=== PATIENT | male | born 1965 | race African-American/Black ===

== ENCOUNTER 2020-07-29 12:59 | Emergency (ER) | payer OTHER, SELFPAY ==
--- NOTE | ~2020-07-29 | XR_ITS ---
EXAMINATION: XR chest 2V 07/29/2020 13:34 INDICATION: Cough and shortness of breath. Fever. PROCEDURE: 2 view chest COMPARISON: No prior studies for comparison. FINDINGS: The lungs are clear. The cardiomediastinal silhouette is within normal limits. There are no pleural effusions. There is no pneumothorax suspected. IMPRESSION: 1: NO ACUTE CARDIOPULMONARY DISEASE. Reviewed, dictated and finalized at location A. S HOST
[2020-07-29 13:18] VITALS: BP 140/93; PULSE 87; RESP 24; TEMP 37.6; O2SAT 100
--- NOTE | 2020-07-29 13:27 | ED.URI ---
HPI - URI/Sore Throat General Chief Complaint: Upper Respiratory Infection Stated Complaint: pneumonia Time Seen by Provider: 07/29/20 13:19 Source: patient and RN notes reviewed Mode of arrival: ambulatory Limitations: no limitations History of Present Illness HPI Narrative: Patient presents today complaining of an approximately 1 month history of a dry cough. Patient was diagnosed with pneumonia in April, finished a course of antibiotics, and states his symptoms had almost completely resolved until returning in June. States he is now very fatigued as well. Reports he does have some productivity in his cough, but only in the mornings. Denies shortness of breath, congestion, rhinorrhea, sore throat, fever. He has taken [place] cold with relief. Denies history of COPD or asthma. He is a non-smoker. He is S/P kidney transplant in 2012. No recent testing for COVID-19. MD elicited complaint: cough Related Data Home Medications Medication Instructions Recorded Confirmed calcitriol 0.25 mcg DAILY 07/29/20 07/29/20 losartan 25 mg DAILY 07/29/20 07/29/20 mycophenolate sodium 360 mg PO DAILY 07/29/20 07/29/20 prednisone 5 mg DAILY 07/29/20 07/29/20 tacrolimus 07/29/20 Allergies Allergy/AdvReac Type Severity Reaction Status Date / Time No Known Allergies Allergy Verified 07/29/20 13:18 Review of Systems Review of Systems: Narrative: CONSTITUTIONAL: Denies body aches, fever, chills, or sweats. + Fatigue EYES: Denies visual changes, redness, or discharge. ENT: Denies rhinorrhea, congestion, sore throat, or otalgia. CARDIOVASCULAR: Denies chest pain, palpitations, or edema. RESPIRATORY: Denies dyspnea. + Cough GASTROINTESTINAL: Denies abdominal pain, nausea, vomiting, or diarrhea. GENITOURINARY: Denies dysuria or hematuria. SKIN: Denies rash, itching, or wounds. MUSCULOSKELETAL: Denies back pain, joint pain, or myalgia. NEUROLOGIC: Denies headache, numbness, tingling, or weakness. PSYCH: Denies depression or anxiety. [facility] Surgical History Surgical History (Updated 07/29/20 @ 13:34 by Jesica Aragon, [employer]LEY COLLECTOR, BC) Kidney transplant recipient Social History Social History Gender identity (if verbalized by the patient): Male Exam Narrative: Exam Narrative: GENERAL: Well-appearing, well-nourished, and in no acute distress. HEAD: Normocephalic, atraumatic. EYES: EOMI. No redness or drainage. Conjunctivae normal. ENT: Mucous membranes pink and moist. Nares clear. No rhinorrhea. TMs normal bilaterally. Throat normal. Uvula midline. NECK: Normal AROM. Supple. No lymphadenopathy. CHEST: No respiratory distress. Few crackles in the left lower lobe, otherwise clear. HEART: Regular rate and rhythm. No murmur appreciated. Normal peripheral pulses. EXTREMITIES: Normal range of motion. No edema. SKIN: Warm, dry, no rash. Capillary refill normal. Normal skin turgor. NEURO: No focal deficits. Alert and oriented x3. Gait steady. PSYCH: Normal affect. No signs of depression or anxiety. Course Vital Signs Vital signs: Vital Signs Temperature 99.6 F 07/29/20 13:18 Pulse Rate 87 07/29/20 13:18 Respiratory Rate 24 H 07/29/20 13:18 Blood Pressure 140/93 H 07/29/20 13:18 Pulse Oximetry 100 07/29/20 13:18 Temperature 99.6 F 07/29/20 13:18 Pulse Rate 87 07/29/20 13:18 Respiratory Rate 24 H 07/29/20 13:18 Blood Pressure 140/93 H 07/29/20 13:18 Pulse Oximetry 100 07/29/20 13:18 Reviewed. Pt has been instructed to follow up with his PCP regarding his elevated blood pressure today. MDM - URI/Sore Throat Differential Diagnosis Differential diagnosis: Likely upper respiratory infection, viral infection, bronchitis and other (Pneumonia) Imaging Data Radiologist's impression: ITS Impressions Chest X-Ray 07/29/20 13:35 IMPRESSION: 1: NO ACUTE CARDIOPULMONARY DISEASE. Critical Care Time Critical Care Time Critical Care Time: No Discharge Plan
== END 2020-07-29 14:04 | disposition home or self-care (01) ==
PROVIDERS: Emergency Provider Nurse Practitioner
DX: J40 Bronchitis, not specified as acute or chronic (principal); Z94.0 Kidney transplant status
CPT/HCPCS: 71046; 99203; G0463

== ENCOUNTER 2022-04-29 14:31 | Emergency (ER) | payer OTHER, SELFPAY ==
--- NOTE | ~2022-04-29 | XR_ITS ---
EXAMINATION: XR chest 2V DATE: 04/29/2022 15:01 INDICATION: Cough and wheezing. TECHNIQUE: Frontal and lateral views of the chest were obtained. COMPARISON: Chest 2 views 07/29/2020 FINDINGS: There are patchy airspace opacities in all right lung zones and in left mid and lower lung zones. No pleural effusion or pneumothorax. The heart size is normal. There are surgical clips in the neck. IMPRESSION: 1. Diffuse lung disease, right worse than left, consistent with pneumonia versus pulmonary edema. Reviewed, dictated and finalized at location A. IMPRESSION: 1. Diffuse lung disease, right worse than left, consistent with pneumonia versu s pulmonary edema.
[2022-04-29 14:41] VITALS: BP 162/80; PULSE 72; RESP 16; TEMP 36.8; O2SAT 94
--- NOTE | 2022-04-29 14:59 | ED.URI ---
HPI - URI/Sore Throat General Chief Complaint: Upper Respiratory Infection Stated Complaint: flu like symptoms Time Seen by Provider: 04/29/22 14:50 History of Present Illness HPI Narrative: Jasen Monge is a 56 yo male with a PMH of renal transplant, A. fib, chronic anticoagulation, [facility] upper respiratory symptoms that have been a few days in the making that include diffuse wheezing of the chest runny nose and cough. He has a history of having pneumonia every year to has some lung scarring. He also has a grade 4 heart murmur. States that his primary care physician is not available to try to call his office Related Data Home Medications Medication Instructions Recorded Confirmed calcitriol 0.25 mcg capsule 0.25 mcg DAILY 07/29/20 04/29/22 losartan 25 mg tablet 25 mg DAILY 07/29/20 04/29/22 mycophenolate sodium 360 mg 360 mg PO DAILY 07/29/20 04/29/22 tablet,delayed release tacrolimus 1 mg capsule, 1 mg DIRECTED 07/29/20 04/29/22 immediate-release Allergies Allergy/AdvReac Type Severity Reaction Status Date / Time No Known Allergies Allergy Verified 04/29/22 14:47 Review of Systems Review of Systems: CONSTITUTIONAL: Denies fever, chills, sweats. EYES: Denies visual changes, redness, discharge. ENT: Denies rhinorrhea, congestion, sore throat, otalgia. CARDIOVASCULAR: Denies chest pain, palpitations, edema. RESPIRATORY: Denies dyspnea, wheezing, has cough, denies sob GASTROINTESTINAL: Denies abdominal pain, nausea, vomiting, diarrhea. GENITOURINARY: Denies dysuria, hematuria, abnormal discharge SKIN: Denies rash or itching. NEUROLOGIC: Denies numbness, or focal weakness. PSYCHIATRIC: Denies anxiety or depression. [facility] Past Medical History Medical History A-fib Chronic anticoagulation Surgical History Surgical History Kidney transplant recipient Renal transplant recipient Social History Social History (Updated 04/29/22 @ 15:05 by Amanda Leal CNP) Smoking status: Never smoker Alcohol intake: never Gender identity (if verbalized by the patient): Male Comments At time of signature, I agree with nursing past medical, surgical, social and family history. There is no relevant family history pertinent to the presenting complaint. Exam Narrative: GENERAL: This is a well-nourished, well-developed patient, in mild distress. HEAD: normocephalic, atraumatic. EYES: Sclera clear/white. Vision is grossly intact. EARS: External ears normal, auditory canals clear and without drainage, TMs normal without perforation. Hearing grossly intact. NOSE: External nose normal without nasal discharge, nares without redness, no rhinorrhea. THROAT: Mucous membranes moist, posterior pharynx mild erythema NECK: Neck supple, non-tender CARDIOVASCULAR: Regular rate and rhythm without 4/6 systolic murmur, gallops, or rubs. RESPIRATORY: Diminished to auscultation. Breath sounds equal bilaterally. Diffuse wheezes, rales, or rhonchi. GASTROINTESTINAL: Not done SKIN: warm, intact with no suspicious lesions or rash, good texture and turgor. NEURO: awake, alert, and oriented to person, place and time. There were no obvious focal neurologic abnormalities. Steady gait EXTREMITIES: Normal range of motion. 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
== END 2022-04-29 15:26 | disposition home or self-care (01) ==
PROVIDERS: Emergency Provider Nurse Practitioner; PCP Nurse Practitioner Family
DX: J18.9 Pneumonia, unspecified organism (principal); I48.91 Unspecified atrial fibrillation; Z79.01 Long term (current) use of anticoagulants; Z94.0 Kidney transplant status
CPT/HCPCS: 71046; 99213; G0463

== ENCOUNTER 2022-11-18 09:55 | Emergency (ER) | payer OTHER, SELFPAY ==
--- NOTE | ~2022-11-18 | XR_ITS ---
EXAMINATION: XR chest 2V DATE: 11/18/2022 10:36 INDICATION: Productive cough. Kidney transplant recipient. TECHNIQUE: Frontal and lateral views of the chest were obtained. COMPARISON: Chest 2 views 04/29/2022, 07/29/20 FINDINGS: There are airspace opacities in all right lung zones. There are airspace opacities in left perihilar region and left lower lung zone. No pleural effusion or pneumothorax. Cardiomegaly is noted . There are surgical clips in the neck. IMPRESSION: 1. Diffuse lung disease, right worse than left, similar to 04/29/2022, but new from 07/29/20. The diff erential diagnosis includes pneumonia, pulmonary edema, drug reaction, and chronic lung disease. If t here is clinical concern for chronic lung disease, consider noncontrast chest CT. 2. Cardiomegaly. Reviewed, dictated and finalized at location A. IMPRESSION: 1. Diffuse lung disease, right worse than left, similar to 04/29/2022, but new f rom 07/29/20. The differential diagnosis includes pneumonia, pulmonary edema, d rug reaction, and chronic lung disease. If there is clinical concern for chroni c lung disease, consider noncontrast chest CT. 2. Cardiomegaly.
--- NOTE | 2022-11-18 10:05 | ED.URI ---
HPI - URI/Sore Throat General Chief Complaint: Upper Respiratory Infection Stated Complaint: Congestion,Shortness of Breath,Cough Time Seen by Provider: 11/18/22 10:53 Source: patient and RN notes reviewed Mode of arrival: ambulatory Limitations: no limitations History of Present Illness HPI Narrative: 57-year-old male presents concern for congestion, cough, shortness of breath that started today. He has a history of AFib, kidney transplant recipient, chronic anticoagulation. He reports history of pneumonia. He reports starting have nasal congestion drainage today. He did not take any medications for his symptoms MD elicited complaint: cough Related Data Home Medications Medication Instructions Recorded Confirmed calcitriol 0.25 mcg capsule 0.25 mcg PO DAILY 07/29/20 11/18/22 losartan 25 mg tablet 25 mg PO DAILY 07/29/20 11/18/22 mycophenolate sodium 360 mg 360 mg PO DAILY 07/29/20 11/18/22 tablet,delayed release atorvastatin 10 mg tablet 10 mg PO DAILY 11/18/22 11/18/22 prednisone 5 mg tablet 5 mg PO DAILY 11/18/22 11/18/22 sulfamethoxazole 800 1 tablet PO BID 11/18/22 11/18/22 mg-trimethoprim 160 mg tablet tacrolimus 1 mg capsule, 1 mg PO DAILY 11/18/22 11/18/22 immediate-release Allergies Allergy/AdvReac Type Severity Reaction Status Date / Time No Known Allergies Allergy Verified 11/18/22 10:12 Review of Systems Review of Systems: CONSTITUTIONAL: Reports malaise. Denies chills, sweats, or fever. EYES: Denies visual changes, redness, or discharge. ENT: Reports rhinorrhea, congestion. Denies sinus pain, otalgia and sore throat. CARDIOVASCULAR: Denies chest pain, palpitations, or edema. RESPIRATORY: Reports cough, chest congestion cough Denies dyspnea. GASTROINTESTINAL: Denies abdominal pain, nausea, vomiting, diarrhea SKIN: Denies rash or itching. MUSCULOSKELETAL: Denies myalgia. NEUROLOGIC: Denies headache. All systems reviewed & are unremarkable except as noted in HPI and below PMFSH Past Medical History Medical History A-fib Chronic anticoagulation Surgical History Surgical History Kidney transplant recipient Renal transplant recipient Social History Social History (Updated 04/29/22 @ 15:05 by Amanda Leal, MECHANICAL ASSEMBLY) Smoking status: Never smoker Alcohol intake: never Gender identity (if verbalized by the patient): Male Comments At time of signature, agree with nursing past medical, surgical, social and family history. There is no relevant family history pertinent to the presenting complaint Exam Narrative: GENERAL: Nontoxic-appearing and in no acute distress. HEAD: Normocephalic EYES: PERRLA, conjunctivae clear ENT: Nares clear, clear discharge. Mucous membranes moist. TM pearly [place]ck[place] with dull light reflex bilaterally; no tragal tenderness. Oropharynx not erythematous without lesions. Tonsils not enlarged and without exudate, no drooling, no hoarseness, no trismus, uvula midline. NECK: Supple. No lymphadenopathy CHEST: Scattered rhonchi in both lungs, worse on the right, breath sounds equal. No wheezing, rales, or stridor. No respiratory distress, speaks in full sentences. HEART: Regular rate and rhythm. No murmur heard. SKIN: Warm, dry, no rash. NEURO: Alert and oriented x3. PSYCH: Normal mood and affect Course Course Emergency Course: Patient was advised to call his primary care provider to follow-up on today's x-ray Patient is aware of diagnosis, understands and agrees to treatment plan. Anticipatory guidance given. Patient agrees to follow-up as directed and is aware of reasons to seek care at the emergency department. Portions of this record may have been created with voice recognition software Level of Care: Express Care Visit Vital Signs Vital signs: Reviewed. MDM - URI/Sore Throat MDM Narrative Medical decision making narrative: Differential efrem
[2022-11-18 10:10] VITALS: BP 142/72; PULSE 80; RESP 20; TEMP 36.4; O2SAT 96
[2022-11-18 10:15] VITALS: BP 142/72; PULSE 80; RESP 20; TEMP 36.4; O2SAT 96
== END 2022-11-18 11:04 | disposition home or self-care (01) ==
PROVIDERS: Emergency Provider Nurse Practitioner; PCP Nurse Practitioner Family
DX: J98.4 Other disorders of lung (principal); I48.91 Unspecified atrial fibrillation; Z79.899 Other long term (current) drug therapy
CPT/HCPCS: 71046; 99213; G0463